=== PATIENT | male | born 1955 | race Caucasian/White ===

== ENCOUNTER 2021-12-29 13:17 | Inpatient (IN) | payer MEDICARE, OTHER ==
[~2021-12-29] VITALS: Ht 172.7 cm; Wt 81.5 kg
[2021-12-29] MEDS ORDERED: NORVASC 10MG10 MG PO (13:36)
[2021-12-29] MEDS ORDERED: SENNA8.6 M1 PO (13:37)
[2021-12-29] MEDS ORDERED: OXYCODONE HYDROC5 M1 PO (13:37)
[2021-12-29] MEDS ORDERED: MS CONTIN 115 MG/TAB PO (13:38)
[2021-12-29] MEDS ORDERED: ADVAIR DISKUS1 DS2 IH (13:39)
[2021-12-29] MEDS ORDERED: AMITRIPTYLINE H25 M2 PO (13:39)
[2021-12-29] MEDS ORDERED: MIRTAZAPINE7.5 M1 PO (13:40)
[2021-12-29] MEDS ORDERED: GABAPENTIN TAB600 MG PO (13:40)
[2021-12-29] MEDS ORDERED: MOVANTIK25 MG PO (13:41)
[2021-12-29] MEDS ORDERED: POTASSIUM CHLO20 ME3 PO (13:42)
[2021-12-29 13:45] VITALS: BP 144/76
[2021-12-29 14:00] VITALS: BP 144/76
[2021-12-29 18:10] LABS: URINE WBC 0 /hpf (0-3)
[2021-12-29 18:27] LABS: URINE APPEARANCE CLEAR; URINE BILIRUBIN NEGATIVE (NEGATIVE); URINE BLOOD NEGATIVE (NEGATIVE); URINE COLOR LIGHT YELLOW; URINE GLUCOSE NEGATIVE (NEGATIVE); URINE KETONE NEGATIVE (NEGATIVE); URINE LEUKOCYTE ESTERASE NEGATIVE (NEGATIVE); URINE NITRATE NEGATIVE (NEGATIVE); URINE PROTEIN(semi-quant) TRACE (NEGATIVE); URINE UROBILINOGEN NORMAL (NORMAL)
[2021-12-30 05:11] VITALS: BP 154/74
[2021-12-30 06:27] LABS: HEMATOCRIT 37.9 % (42.0-52.0); HEMOGLOBIN 11.7 g/dL (13.5-18.0); MEAN CELL VOLUME 102 fl (78-100); MEAN CORPUSCULAR HEMOGLOBIN 32 pg (27-31); MEAN CORPUSCULAR HGB CONC 31 g/dL (33-37); MEAN PLATELET VOLUME 11.2 fl (7.4-10.4); PLATELET COUNT 189 K/mm3 (130-400); WHITE BLOOD COUNT 7.5 K/mm3 (4.8-10.8)
[2021-12-30 06:38] LABS: ALBUMIN 3.2 g/dL (3.4-4.8); POTASSIUM 3.6 mmol/L (3.5-5.1)
[2021-12-30 06:40] LABS: CALCIUM 8.7 mg/dL (8.3-10.5)
[2021-12-30 06:41] LABS: TOTAL PROTEIN 6.5 g/dL (6.2-8.1)
[2021-12-30 06:42] LABS: TOTAL BILIRUBIN 0.8 mg/dL (0.2-1.2)
[2021-12-30 07:06] LABS: LYMPHOCYTE 4 % (20-51); MONOCYTE 5 % (3-10); NEUTROPHILS 91 % (42-75)
[2021-12-30 07:07] LABS: POLYCHROMASIA 1+
[2021-12-30 17:20] VITALS: BP 138/60
[2021-12-31 05:53] VITALS: BP 143/80
[2021-12-31 16:12] VITALS: BP 118/62
[2022-01-01 05:19] VITALS: BP 113/70
[2022-01-01 14:05] VITALS: BP 146/74
[2022-01-01 17:13] VITALS: BP 147/81
[2022-01-02 06:04] VITALS: BP 126/73
[2022-01-02 17:08] VITALS: BP 122/74
[2022-01-03 05:57] VITALS: BP 135/75
[2022-01-03 17:27] VITALS: BP 114/76
[2022-01-04 06:16] VITALS: BP 135/77
[2022-01-04] MEDS ORDERED: AMITRIPTYLINE H50 M1 PO ×2 (08:48)
[2022-01-04] MEDS ORDERED: AMITRIPTYLINE H25 M2 PO (09:16)
[2022-01-04 09:48] VITALS: BP 152/75
== END 2022-01-04 10:05 | disposition home health service (06) | DRG 561 ==
LOC: MED/SURG 13:17
PROVIDERS: ADMIT Physician Assistant
DX: S52.202D Unspecified fracture of shaft of left ulna, subsequent encounter for closed fracture with routine healing (principal); R53.81 Other malaise; I10 Essential (primary) hypertension; G62.9 Polyneuropathy, unspecified; M10.9 Gout, unspecified; K21.9 Gastro-esophageal reflux disease without esophagitis; F10.20 Alcohol dependence, uncomplicated; E78.5 Hyperlipidemia, unspecified; K59.00 Constipation, unspecified; G89.29 Other chronic pain; M79.605 Pain in left leg; S52.92XD Unspecified fracture of left forearm, subsequent encounter for closed fracture with routine healing; W19.XXXD Unspecified fall, subsequent encounter; Z79.891 Long term (current) use of opiate analgesic; Z85.118 Personal history of other malignant neoplasm of bronchus and lung
CPT/HCPCS: J1650